=== PATIENT | female | born 1970 | race Caucasian/White ===

== ENCOUNTER → 2019-05-12 15:19 | Outpatient (CLI) | payer OTHER, SELFPAY ==
[2016-02-05 05:50] VITALS: BMI 27.0
== END ==
PROVIDERS: Family Provider Family Medicine; PCP Family Medicine; Referring Provider Otolaryngology; Visit Provider Otolaryngology
DX: J02.9 Acute pharyngitis, unspecified (principal)
CPT/HCPCS: 87070

== ENCOUNTER → 2019-05-22 14:47 | Outpatient (CLI) | payer OTHER, SELFPAY ==
--- NOTE | 2019-05-22 14:49 | CT_ITS ---
STUDY: CT MAXILLOFACIAL SINUSES REASON FOR EXAM: Female, 49 years old. Sinusitis. RADIATION DOSAGE (If Supplied By Facility): CTDIvol = ( 33.06 ) mGy, DLP = ( 906.33 ) mGycm TECHNIQUE: The patient was scanned in a multi detector CT scanner. High resolution axial imaging was performed without the administration of intravenous contrast material. Sagittal and coronal images were reconstructed. Individualized dose optimization techniques were used for this CT. COMPARISON: None. FINDINGS: FRONTAL SINUSES: Normal aeration, without mucosal inflammatory disease. ETHMOIDAL SINUSES: Normal aeration, without mucosal inflammatory disease. MAXILLARY SINUSES: Normal aeration, without mucosal inflammatory disease. SPHENOIDAL SINUSES: Normal aeration, without mucosal inflammatory disease. There is patency of the bilateral maxillary infundibuli with normal uncinate processes, ethmoid bullae, and hiatus semilunaris. Normal bilateral middle turbinates. Normal bilateral inferior turbinates. Normal midline nasal septum. There is patency of the bilateral nasal airways. There is some degenerative narrowing of the right temporomandibular joint space and mildly flattened contour of the right mandibular condyle, consistent with osteoarthritic change. Degenerative narrowing also seen at the anterior atlantoaxial articulation. The visualized bilateral orbital contents are normal. Incidental note of borderline to mildly enlarged bilateral level II cervical lymph nodes. On the left, there is a 3.4 x 2.25 x 1.55 cm node on series 601 image 97, series 602 image 119. Along its superior margin is a 1.9 x 1.4 x 1.05 cm lymph node. Deep to the upper left sternocleidomastoid muscle is a 3.3 x 1.3 x 0.5 cm left level 3 lymph node. There is a 3.1 x 1.75 x 1.35 cm right level II cervical lymph node on series 601 image 98, series 602 image 45. Deep to the upper right sternocleidomastoid muscle is a 1.35 x 1.5 x 0.6 cm node and, just inferior to this, a 3.0 x 0.95 x 0[address]/Sinus/Facial Bone IMPRESSION: 1. Normal CT examination of the maxillofacial sinuses. 2. Mild arthritic change of the right temporomandibular joint. 3. Borderline to mildly enlarged bilateral level II cervical lymph nodes, as noted. Electronically Signed: Jaime Kraus MD at 15:32 EDT , Service support ,
== END ==
PROVIDERS: Family Provider Family Medicine; PCP Family Medicine; Referring Provider Otolaryngology; Visit Provider Otolaryngology
DX: J32.9 Chronic sinusitis, unspecified (principal)
CPT/HCPCS: 70486

== ENCOUNTER 2020-03-10 22:55 | Emergency (ER) | payer OTHER, SELFPAY ==
[2020-03-10 22:56] VITALS: BP 125/79; PULSE 80; RESP 15; TEMP 36.6; O2SAT 98; BMI 27.0
--- NOTE | 2020-03-10 23:06 | RAD_ITS ---
STUDY: X-RAY - RIGHT FOOT CLINICAL: Female, 50 years old. kicked an ottaman -- c/o rt great toe pain TECHNIQUE: 3 view(s) of the foot. COMPARISON: None. FINDINGS: There is a small plantar aspect calcaneal spur. Normal visualized subtalar, talonavicular, calcaneocuboid, tarsal and tarsometatarsal articulations. Normal metatarsi. Normal metatarsophalangeal joint of the great toe. Normal tibial and fibular sesamoid bones. Normal interphalangeal joint of the great toe. Normal phalanges of the great toe. Normal second through fifth metatarsophalangeal joints. Normal interphalangeal joints and phalanges of the lesser toes. The soft tissue structures are unremarkable. RAD/Foot min 3 Views IMPRESSION: Small plantar aspect calcaneal spur. No evidence of fracture or dislocation, with attention to the great toe. Electronically Signed: Dallas Foster MD at 23:33 EDT , Service support ,
--- NOTE | 2020-03-10 23:06 | ED.VIS.GEN ---
History of Present Illness Chief Complaint: Lower Extremity Injury Informant: Patient Narrative: Patient stated she injured her left foot. She stated that she kicked an ottoman just prior to arrival tonight. No home treatment. Wanted to make sure she did not break her foot. Hurts to walk on it and move and touch it. Pain just proximal to the big toe. Current severity is moderate. No previous injury. Past Medical History - Allergies and Home Meds Allergies/Adverse Reactions: Allergies aspirin Allergy (Verified 03/10/20 22:59) Hives benzonatate [From Tessalon Perles] Allergy (Verified 03/10/20 22:59) Hives penicillin Allergy (Verified 03/10/20 22:59) Hives Primary Care Physician: Chase Huitron MD [Primary Care Provider] - Prior records reviewed: Yes Past Medical History: - Surgical History: noncontributory Lives: With Family Smoking Status: Current every day smoker Alcohol: None Drugs: None Review of Systems General: Denies: Chills, Fever, Sweats Eyes: Denies: Visual changes - bilaterally, Diplopia ENT: Denies: Rhinorrhea, Sore throat Cardiovascular: Denies: Chest pain, Palpitations Respiratory: Denies: Dyspnea, Cough, Dyspnea on exertion Gastrointestinal: Denies: Abdominal pain, Nausea, Vomiting, Diarrhea, Melena, Hematochezia Genitourinary: Denies: Dysuria, Hematuria, Frequency Musculoskeletal: Reports: Back pain, Extremity Pain Skin: Denies: Rash, Wounds Neurological: Denies: Headache, Weakness, Numbness Physical Exam Vital Signs/Narrative: Vital Signs Temp Pulse Resp BP Pulse Ox 03/10/20 22:56 97.8 F 80 15 125/79 H 98 General: Well nourished, Well developed, No Acute Distress Head: Normocephalic, Atraumatic Eyes: Perrl, EOMI ENT: Moist mucous membranes, No rhinorrhea Neck: Supple, Nontender Cardiovascular: Regular rate, Regular rhythm, No murmurs Respiratory: No distress, CTA bilaterally, Chest nontender Abdomen: Soft, Nontender, Nondistended, Normal bowel sounds Back: Nontender, Normal Inspection Extremities: No edema, Tenderness - Tenderness just small to the left great toe on the distal first metatarsal. No swelling or deformity Skin: Normal color, No rash Neurological: Alert, Oriented x3, Cranial nerves II-XII grossly intact, Normal Strength, Normal Sensation Psychological: Normal affect, Normal Mood Diagnostic/Tx/Re-eval - Medical Decision Making X-ray of the foot obtained. Given ice pack and Tylenol. X-ray negative. At this time I feel she just bruised and sprained her toe and foot. Will be given a postop shoe and follow-up as an outpatient ED Disposition - Plan for ED Patient: Disposition: Home or Assisted Living Diagnosis: Foot sprain, Foot contusion Instructions: ED FOOT CONTUSION Referrals: Chase Huitron MD [Primary Care Provider] -
[2020-03-10] MEDS: Acetaminophen 500 MG Tablet PO (23:12)
== END 2020-03-11 00:02 | disposition home or self-care (01) ==
PROVIDERS: Emergency Provider Emergency Medicine; PCP Family Medicine
DX: S93.602A Unspecified sprain of left foot, initial encounter (principal); S90.32XA Contusion of left foot, initial encounter; F17.200 Nicotine dependence, unspecified, uncomplicated; X58.XXXA Exposure to other specified factors, initial encounter
CPT/HCPCS: 73630; 99283

== ENCOUNTER 2021-02-25 07:30 | Outpatient (RCR) | payer OTHER, SELFPAY ==
--- NOTE | 2020-10-16 11:20 | HP.PTEVAL_ITS ---
Patient's Visit Information LEN ISABEL is a 50 year old F referred to Physical Therapy by Dr. Abdoulaye De La O MD with a diagnosis of Left Shoulder Surgery 10/15/2020. Date of Evaluation: 10/16/20 Physical Therapist: Jeannine Mendoza DPT - Visit Plan Frequency: 3x /Week Duration: 4 Weeks Plan: Left Shoulder Debridment 10/15/2020: Focus on ROM- PROM, AAROM, AROM. - Subjective Left shoulder- started late February and she had muscle pain and it was very painful. She had a cortisone injection and did PT which worked okay for about 4-5 weeks then the pain started coming back. Went back to [facility] daria horner in the front and did not work at all. Had an MRI and ended up in surgery yesterday. Dr. De La O- but patient is unsure of exactly what he did. She saw Dr. Albarado first and then got a second opinion. She knows she had tears in labrum but the plan was to maybe do a biceps tenodesis. Surgery was yesterday 10/15/2020- went home after surgery-the nerve block is starting to wear off. Has help at home and fully I prior to surgery. Right hand dominate. 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 Is currently off work- return to work date is November 27 but can be changed as needed- possible duty possiblity. Currently: 05/02 throbbing- dull achy pain- sharp stabbing in the muscle if she moved it the wrong way. Agg: moving Eases: medication and ice machine. Best: 10/02 prior to surgery- since surgery 11/30. Sleep: disturbed- is currently in a chair but was in bed prior to surgery. Pain is located in the shoulder and down the back of the arm to the elbow. No pain past the elbow. No N/T in the hand prior to surgery but does have some now due to the nerve block yesterday. Unsure how long wants her in a sling. Goes back to see October 23. PMHx: none Meds: Ibuprofen PRN- [place] for after the surgery. Currently not driving. - Objective Posture: FH, RS- significant guarding of the left UE- pillow sling. Gait: no a rm swing or trunk rotation- guards slinged left UE- hunched forwards- slow gaid pt reports slow due to pain meds. Sensation: increased pins/needles in the forearm and hand. Observation: bandage and gauze over entire left shoulder. Palpation: tender along upper trap, cervical paraspinals, medial border of the scapulae, tricep. ROM: Cervical: WNL in all planes but reports discomfort SB to the right. Finger dexterity: unable to touch fingers with thumb but can make a fist, Elbow: full but reports significant pain, Shoulder: PROM only: very guarded- crying and reports 10/10 pain. Flexion: 30 degrees, Abd: 40 degrees, IR: to belly ER: neutral. Challenged to get good ROM measurements today due to guarding and pain- will continue to collect data - Goals Goal 1:: Patient will be I with HEP and progression Goal Time Frame: 4-6 Weeks Goal 2:: Patient will demo full AROM of the left shoulder Goal Time Frame: 4-6 Weeks Goal 3:: Patient will be able to stack 3 cones to an overhead shelf for 3 minutes Goal Time Frame: 4-6 Weeks Goal 4:: Patient will maintain proper posture t/o tx session to demo increased scap s/s. Goal Time Frame: 4-6 Weeks - Rehabilitation Potential Physical Therapy Diagnosis: Patient presents with hypomobility- she is s/p left shoulder surgery for debridement and manipulation. She has decreased ROM, strength and muscular endurance leading to poor posture and inability to perform ADL's. Rehabilitation Potential: Fair - Anticipated Interventions Patient/Client Instruction: Educate patient on: Benefits of Fitness Program Therapeutic Exercise to Include: Strength training, Endurance training, Body mechanics, Postural training, Neuromotor development, Passive ROM, Active ROM, Scapular Strength/Stabilization For the Purpose of:: To improve muscle performance and motor function Manual Therapy Techniques to Include: Mobilization, Passive ROM, Functional dry needling, Soft tissue mobilization For the Purpose of:: To increase ROM, To improve nutrient delivery to tissue TENS: Yes Cryotherapy (ice pack, ice massage): Yes Thermo therapy (hot pack): Yes For the Purpose of:: To decrease pain Thank you for the opportunity to evaluate your patient. For Medicare and Medicare HMO plans, please review the plan of care and approve it. It will need to be FAXED BACK to us at [phone] for Medicare purposes. For Medicare only, by signing this I certify the plan of care. Please let me know if there are questions or concerns regarding this plan of care. Physician Signature: Date:
--- NOTE | 2020-11-13 15:27 | HP.PTREVAL ---
Dr. Abdoulaye De La O MD, It has been my pleasure to treat LEN ISABEL over the last 11 visits for Left Shoulder Surgery 10/15/2020. Please see the progress note below for an update on the physical therapy plan of care! Subjective: Patient reports that she feels her shoulder is slow. The range is not there yet and it still feels like it weighs about 100 lbs. After she gets it warmed up it moves better but then about 30-60 min later it stiffens back up. Has very little strength in the arm. Feels her shoulder is 35-40%. Had a cortisone injection but felt no difference. Gets sore and achy but if she does something stupid it does bother her. Worst: -05/02 when she turned it in a funny way with a shopping cart- took pain meds and it got better. Most of the time its pain free. Objective/Function: Posture: FH, RS- mild guarding of the left UE- NO pillow sling. Gait: diminshed arm swing or trunk rotation Palpation: tender along upper trap, cervical paraspinals, medial border of the scapulae, tricep. ROM: Cervical: WNL Elbow: full no pain Shoulder: PROM: painful and empty end feel Flexion: 125 degrees, Abd: 95 degrees, IR: to belly ER: 30 AROM: Flexion: 90 degrees Abd: 50 degrees, IR: sacrum ER: 30 degrees [place] Flexion: 120 degrees. Strength: Scap: fair minus moderate winging, Isometric at neutral in all directions: 4-/5, Elbow: 4/5 Plan Plan: Left Shoulder Debridment 10/15/2020: Focus on ROM (PROM, AAROM, AROM). 11/13/2020: Continue POC- addition of strength training Goals Goal 1:: Patient will be I with HEP and progression Goal Time Frame: 4-6 Weeks Goal Progress: Progressing Goal 2:: Patient will demo full AROM of the left shoulder Goal Time Frame: 4-6 Weeks Goal Progress: Progressing Goal 3:: Patient will be able to stack 3 cones to an overhead shelf for 3 minutes Goal Time Frame: 4-6 Weeks Goal Progress: Progressing Goal 4:: Patient will maintain proper posture t/o tx session to demo increased scap s/s. Goal Time Frame: 4-6 Weeks Goal Progress: Progressing Anticipated Interventions Patient/Client Instruction: Educate patient on: Benefits of Fitness Program Therapeutic Exercise to Include: Strength training, Endurance training, Body mechanics, Postural training, Neuromotor development, Passive ROM, Active ROM, Scapular Strength/Stabilization For the Purpose of:: To improve muscle performance and motor function Manual Therapy Techniques to Include: Mobilization, Passive ROM, Functional dry needling, Soft tissue mobilization For the Purpose of:: To increase ROM, To improve nutrient delivery to tissue TENS: Yes Cryotherapy (ice pack, ice massage): Yes Thermo therapy (hot pack): Yes For the Purpose of:: To decrease pain Please do not hesitate to contact me at [phone] by phone or if you have questions or concerns regarding this new plan of care! Sincerely, Jeannine Mendoza DPT
--- NOTE | 2021-01-01 12:43 | HP.PTREVAL_ITS ---
Dr. Abdoulaye De La O MD, It has been my pleasure to treat LEN ISABEL over the last 18 visits for Left Shoulder Surgery 10/15/2020. Please see the progress note below for an update on the physical therapy plan of care! Subjective: Manipulation again yesterday- but it?s a lot less sore than last time. Feels like she was punched in the arm and bruised. Sling until the nerve block wore off. Patient reports that she drove today- she was able to move it once but then the muscles fatigued. Worst 10/30. Objective/Function: Posture: FH, RS- mild guarding of the left UE- no sling. Gait: good arm swing or trunk rotation Palpation: tender along upper trap, cervical paraspinals, medial border of the scapulae, tricep. ROM: Cervical: WNL Elbow: full no pain Shoulder: PROM: AROM: Flexion: 130 degrees Abduction: 60 degrees, ER: 50 degrees IR: thumb to L2. AAROM: Flexion: 150 degrees Abd: 140 degrees. PROM: Flexion: 160 degrees, Abd: 180 degrees, IR: to belly, ER: 50 degrees. Strength: Scap: fair minus moderate winging, Isometric at neutral in all directions: 4/5, Elbow: 4+/5 Plan Plan: 01/01/2021: Continue to progress towards AROM and strength. Left Shoulder Debridment 10/15/2020: Focus on ROM (PROM, AAROM, AROM). 11/13/2020: Continue POC- addition of strength training Goals Goal 1:: Patient will be I with HEP and progression Goal Time Frame: 4-6 Weeks Goal Progress: Progressing Goal 2:: Patient will demo full AROM of the left shoulder Goal Time Frame: 4-6 Weeks Goal Progress: Progressing Goal 3:: Patient will be able to stack 3 cones to an overhead shelf for 3 minutes Goal Time Frame: 4-6 Weeks Goal Progress: Progressing Goal 4:: Patient will maintain proper posture t/o tx session to demo increased scap s/s. Goal Time Frame: 4-6 Weeks Goal Progress: Progressing Anticipated Interventions Patient/Client Instruction: Educate patient on: Benefits of Fitness Program Therapeutic Exercise to Include: Strength training, Endurance training, Body mechanics, Postural training, Neuromotor development, Passive ROM, Active ROM, Scapular Strength/Stabilization For the Purpose of:: To improve muscle performance and motor function Manual Therapy Techniques to Include: Mobilization, Passive ROM, Functional dry needling, Soft tissue mobilization For the Purpose of:: To increase ROM, To improve nutrient delivery to tissue TENS: Yes Cryotherapy (ice pack, ice massage): Yes Thermo therapy (hot pack): Yes For the Purpose of:: To decrease pain Please do not hesitate to contact me at [phone] by phone or Fax: if you have questions or concerns regarding this new plan of care! Sincerely, VANDANA ToribioT
--- NOTE | 2021-02-13 13:10 | HP.PTREVAL ---
Dr. Abdoulaye De La O MD, It has been my pleasure to treat LEN ISABEL over the last 28 visits for Left Shoulder Surgery 10/15/2020. Please see the progress note below for an update on the physical therapy plan of care! Subjective: Patient reports that she is a lot better- thinks now its just building strength. The shoulder has no pain- but sometimes does have a little at night but its much better. She feels that she is 65% better- she just needs to be able to lift a lot more than she is currently. Objective/Function: Posture: FH, RS- can correct with verbal cues. Gait: good arm swing or trunk rotation Palpation: not tender ROM: Cervical: WNL Elbow: full no pain Shoulder: AROM: Flexion: 170 degrees Abduction: 180 degrees, ER: 50 degrees IR: thumb to T8. Strength: Scap: fair mild winging, Isometric at neutral in all directions: 4+/5, Elbow: 4+/5 Plan Plan: 02/13/2021: Continue 3 visits for progression to gym program. Then will follow up with PT in 6 weeks for progress check. Pt to see PT next for recheck or d/c. Both functional strength and ROM cont to improve nicely, but they also both remain below 100%. 01/01/2021: Continue to progress towards AROM and strength. Left Shoulder Debridment 10/15/2020: Focus on ROM (PROM, AAROM, AROM) and strength training. Goals Goal 1:: Patient will be I with HEP and progression Goal Time Frame: 4-6 Weeks Goal Progress: Progressing Goal 2:: Patient will demo full AROM of the left shoulder Goal Time Frame: 4-6 Weeks Goal Progress: Progressing Goal 3:: Patient will be able to stack 3 cones to an overhead shelf for 3 minutes Goal Time Frame: 4-6 Weeks Goal Progress: Progressing Goal 4:: Patient will maintain proper posture t/o tx session to demo increased scap s/s. Goal Time Frame: 4-6 Weeks Goal Progress: Progressing Anticipated Interventions Patient/Client Instruction: Educate patient on: Benefits of Fitness Program Therapeutic Exercise to Include: Strength training, Endurance training, Body mechanics, Postural training, Neuromotor development, Passive ROM, Active ROM, Scapular Strength/Stabilization For the Purpose of:: To improve muscle performance and motor function Manual Therapy Techniques to Include: Mobilization, Passive ROM, Functional dry needling, Soft tissue mobilization For the Purpose of:: To increase ROM, To improve nutrient delivery to tissue TENS: Yes Cryotherapy (ice pack, ice massage): Yes Thermo therapy (hot pack): Yes For the Purpose of:: To decrease pain Please do not hesitate to contact me at [phone] by phone or if you have questions or concerns regarding this new plan of care! Sincerely, VANDANA ToribioT
--- NOTE | 2021-03-31 14:40 | HP.PTDCSUM ---
It has been my pleasure to treat LEN ISABEL referred by Dr. Abdoulaye De La O MD, with the diagnosis of Left Shoulder Surgery 10/15/2020 for a total of 30 visit(s). Discharge Date: Please see the following information for a summary of their discharge status. Subjective: Doing well - no pain or new c/o. Left Shoulder Pain Intensity (Out of 10): 0 % Improvement: 70 Objective/Function: Pt seemed to struggle a bit more today on last set of some of the machines at same weight as last session. More freedom given to pt for her to locate and set up machines more mod indep while supervised. Goal 1:: Patient will be I with HEP and progression Goal Progress: Progressing Goal 2:: Patient will demo full AROM of the left shoulder Goal Progress: Progressing Goal 3:: Patient will be able to stack 3 cones to an overhead shelf for 3 minutes Goal Progress: Progressing Goal 4:: Patient will maintain proper posture t/o tx session to demo increased scap s/s. Goal Progress: Progressing Plan: Pt to start indep gym program. Follow up with PT in 6 weeks for progress check. If there are questions or concerns regarding this patient's physical therapy, please feel free to call me at [phone]. Thank you for the referral of this patient. Sincerely, Jeannine Mendoza, VANDANAT Balance/Gait/Functional tests - Balance/Special Test Scores Quick DASH Score: 15.9024
== END 2021-02-25 19:00 | disposition home or self-care (01) ==
LOC: PT 07:30
PROVIDERS: PCP Family Medicine; Referring Provider Orthopaedic Surgery Hand Surgery; Visit Provider Orthopaedic Surgery Hand Surgery
DX: M75.02 Adhesive capsulitis of left shoulder (principal)
CPT/HCPCS: 97110; 97140; 97162; 97164

== ENCOUNTER 2022-01-17 15:15 | Emergency (ER) | payer BC, SELFPAY ==
[2022-01-17 15:16] VITALS: BP 131/65; PULSE 88; RESP 18; TEMP 37.1; O2SAT 97; BMI 24.9
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
--- NOTE | 2022-01-17 15:46 | RAD_ITS ---
STUDY: X-RAY - LEFT SHOULDER REASON FOR EXAM: Female, 52 years old. pain TECHNIQUE: 2 view(s) of the shoulder. COMPARISON: None. FINDINGS: Please see the impression. RAD/Shoulder min 2 Views IMPRESSION: No acute fracture or dislocation in the left shoulder. Clear visualized left lung. Electronically Signed: Frederick Thrasher MD at 16:27 EDT ,
--- NOTE | 2022-01-17 15:46 | RAD_ITS ---
STUDY: X-RAY - LEFT RADIUS AND ULNA REASON FOR EXAM: Female, 52 years old. pain TECHNIQUE: 2 view(s) of the forearm. COMPARISON: None. FINDINGS: There is no demonstrated soft tissue swelling. Normal visualized radius. Normal visualized ulna. RAD/Forearm 2 Views IMPRESSION: Normal x-ray examination of the radius and ulna. Electronically Signed: Frederick Thrasher MD at 16:28 EDT ,
--- NOTE | 2022-01-17 15:46 | RAD_ITS ---
STUDY: X-RAY - LEFT KNEE REASON FOR EXAM: Female, 52 years old. knee pain TECHNIQUE: Four view(s) of the knee. COMPARISON: None. FINDINGS: Please see the impression. RAD/Knee 4 or More Views IMPRESSION: No acute fracture or dislocation in the left knee. No significant knee joint effusion. Electronically Signed: Frederick Thrasher MD at 16:25 EDT ,
[2022-01-17] MEDS: Ibuprofen 600 MG Tablet PO (15:52)
[2022-01-17 16:59] VITALS: BP 125/83; PULSE 80; RESP 16; O2SAT 99
== END 2022-01-17 16:59 | disposition home or self-care (01) ==
PROVIDERS: Emergency Provider Student in an Organized Health Care Education/Training Program; PCP Family Medicine; Visit Provider Student in an Organized Health Care Education/Training Program
DX: S50.12XA Contusion of left forearm, initial encounter (principal); S40.012A Contusion of left shoulder, initial encounter; S80.02XA Contusion of left knee, initial encounter; F17.210 Nicotine dependence, cigarettes, uncomplicated; V43.52XA Car driver injured in collision with other type car in traffic accident, initial encounter
CPT/HCPCS: 73030; 73090; 73564; 99283

== ENCOUNTER → 2024-08-10 | Outpatient (CLI) | payer OTHER, SELFPAY | END | disposition home or self-care (01) | PROVIDERS: PCP Family Medicine; Referring Provider Otolaryngology; Visit Provider Otolaryngology | DX: J02.9 Acute pharyngitis, unspecified (principal) | CPT/HCPCS: 87070; 87077; 87186 ==